=== PATIENT | male | born 1980 ===

== ENCOUNTER 2017-07-06 16:02 | Emergency (ER) | payer OTHER ==
[~2017-07-06] VITALS: Ht 170.2 cm; Wt 81.6 kg
--- NOTE | 2017-07-06 17:10 | NUR ---
MSE COMPLETED, PT D/C'D HOME, ACI/RX X2 GIVEN. PT AMBULATED W/O DIFF/TOOK ALL BELONGINGS.
[2017-07-06 17:12] VITALS: BP 166/92
== END 2017-07-06 17:13 | disposition home or self-care (01) ==
LOC: ER 16:02
DX: J18.9 Pneumonia, unspecified organism (principal)
CPT/HCPCS: 71045; A4663

== ENCOUNTER 2017-08-03 17:16 | Inpatient (IN) | payer OTHER ==
[~2017-08-03] VITALS: Ht 170.2 cm; Wt 82.2 kg
[2017-08-03] MEDS ORDERED: AMLO5TAB4 PO (17:34)
[2017-08-03 18:18] LABS: POTASSIUM 3.4 mmol/L (3.5-5.1)
[2017-08-03 18:23] LABS: BASOPHILS # (AUTO) 0.1 K/uL (0.0-8.0); BASOPHILS % (AUTO) 0.8 % (0.0-2.0); EOSINOPHILS # (AUTO) 0.3 K/uL (0.0-0.7); EOSINOPHILS % (AUTO) 2.1 % (0.0-7.0); HEMATOCRIT 48.3 % (36.7-47.1); HEMOGLOBIN 16.2 g/dL (12.5-16.3); LYMPHOCYTES # (AUTO) 1.4 K/uL (20.0-40.0); LYMPHOCYTES % (AUTO) 10.5 % (20.5-51.5); MEAN CORPUSCULAR HEMOGLOBIN 28.5 uug (23.8-33.4); MEAN CORPUSCULAR HGB CONC 34 g/dL (32.5-36.3); MEAN CORPUSCULAR VOLUME 84.8 fL (73.0-96.2); MONOCYTES # (AUTO) 0.9 K/uL (2.0-10.0); MONOCYTES % (AUTO) 6.5 % (0.0-11.0); NEUTROPHILS # (AUTO) 10.8 K/uL (1.8-8.9); NEUTROPHILS % (AUTO) 80.1 % (38.5-71.5); PLATELET COUNT (AUTO) 245 K/uL (152-348); WHITE BLOOD COUNT (AUTO) 13.5 K/uL (3.6-10.2)
[2017-08-03] MEDS ORDERED: IV NORMAL SALINE 1000 ML BAG IV ONE (18:30)
[2017-08-03 18:36] LABS: BILIRUBIN,DIRECT 0.1 mg/dL (0.0-0.2); BILIRUBIN,TOTAL 0.6 mg/dL (0.2-1.0); TOTAL PROTEIN, SERUM 8.6 g/dL (6.4-8.2)
--- NOTE | 2017-08-03 18:53 | NUR ---
SALINE LOCK PLACED, 1L 0.9 NS INFUSING, MONITOR SHOWS NSR, PO2=99% ON ROOMAIR. LABS/EKG DONE.
[2017-08-03] MEDS ORDERED: ALBUMIN HUMAN 25% (12.5 GM/50 ML ) BOTTLE IV ONE (21:37)
[2017-08-03] MEDS ORDERED: IV NS 1000 ML 1,000 ML IV ONE (22:15)
--- NOTE | 2017-08-03 22:15 | NUR ---
SBAR REPORT TO JESSICA REHMAN RN FROM REGISTRY.
--- NOTE | 2017-08-03 22:38 | NUR ---
Orthostatic VS: supine: 123 hr 157/100 Sittin hr 153/103 Standin hr 161/110 MD notified. Urine sample obtained and taken to lab.
[2017-08-03 23:06] LABS: *AMPHETAMINE, URINE NEGATIVE (NEGATIVE); *BARBITURATE, URINE NEGATIVE (NEGATIVE); *CANNABINOID, URINE NEGATIVE (NEGATIVE); *COCCAINE, URINE NEGATIVE (NEGATIVE); *OPIATE, URINE NEGATIVE (NEGATIVE); *PHENCYCLIDINE SCREEN,URINE NEGATIVE (NEGATIVE)
[2017-08-03] MEDS ORDERED: ALPRAZOLAM 0.25 MG TABLET PO ONE (23:15)
[2017-08-03] MEDS ORDERED: ALPRAZOLAM 0.5 MG TABLET ONE (23:16)
[2017-08-04] MEDS ORDERED: MORPHINE SULFATE 2 MG/1 ML DISP.SYRIN IV ONE (00:30)
[2017-08-04] MEDS ORDERED: ASPIRIN 81 MG TAB.CHEW PO ONE (00:30)
[2017-08-04] MEDS ORDERED: ASPIRIN 81 MG TAB.CHEW ONE (00:39)
[2017-08-04] MEDS ORDERED: METOPROLOL TARTRATE 50 MG TABLET ONE (00:39)
[2017-08-04] MEDS ORDERED: MORPHINE SULFATE 2 MG/1 ML DISP.SYRIN ONE (00:40)
[2017-08-04] MEDS ORDERED: METOPROLOL TARTRATE 50 MG TABLET PO ONE (00:45)
--- NOTE | 2017-08-04 00:53 | NUR ---
Pt c/o sharp pain, 11/23, in upper "lungs". Pt was medicated for pain. Pt going to CT.
[2017-08-04 01:46] LABS: *BILIRUBIN,URIN NEGATIVE (NEGATIVE); *BLOOD, URINE Trace-lysed (NEGATIVE); *CLARITY,URINE CLEAR (CLEAR); *COLOR,URINE YELLOW (YELLOW); *KETONES,URINE NEGATIVE (NEGATIVE); *PROTEIN,URINE NEGATIVE (NEGATIVE); *UROBILINOGEN,URINE 0.2 E.U./dl (NORMAL); LEUKOCYTE ESTERASE ,URINE NEGATIVE (NEGATIVE); NITRITE, URINE NEGATIVE (NEGATIVE); UGLUCOSE NEGATIVE (NEGATIVE)
[2017-08-04 01:49] LABS: BACTERIA,URINE NONE SEEN /HPF (NONE SEEN); RBC,URINE 0-3 /HPF (0-3); SQUAMOUS EPITHELIAL CELL,UR FEW /HPF (NONE SEEN); WBC,URINE NONE SEEN /HPF (0-3)
[2017-08-04] MEDS ORDERED: IV NS 1000 ML 1,000 ML IV PRN (03:17)
[2017-08-04] MEDS ORDERED: ONDANSETRON 4 MG/2 ML VIAL IV PRN (03:30)
[2017-08-04] MEDS ORDERED: MAGNESIUM HYDROXIDE 30 ML LIQUID UDC PO PRN (03:30)
[2017-08-04] MEDS ORDERED: ACETAMINOPHEN 325 MG TABLET PO PRN (03:30)
[2017-08-04] MEDS ORDERED: HYDROCODONE/APAP 5-325MG TABLET PO PRN (03:30)
[2017-08-04] MEDS ORDERED: MORPHINE SULFATE 2 MG/1 ML DISP.SYRIN IV PRN (03:30)
--- NOTE | 2017-08-04 03:35 | NUR ---
Called to give report, nurse busy, B
--- NOTE | 2017-08-04 03:48 | NUR ---
Gave report to PEDRITO Dillard.
--- NOTE | 2017-08-04 04:00 | NUR ---
PT ALERT AWAKE AND ORIENTED IN NO ACUTE DISTRESS ARRIVING IN TELEMETRY UNIT. STATES MINOR CHEST PAIN 07/24. PT MADE AWARE OF PLAN OF CARE AND VERBALIZED UNDERSTANDING. ABLE TO MAKE NEEDS KNOWN. SKIN INTACT WITH ALL EXTREMITIES WNL. BP 114/91 HR SINUS RHYTHM 80BPM. CONTINUE TO MONITOR. CALL LIGHT PLACED WITHIN REACH.
[2017-08-04 04:22] VITALS: BP 107/62
[2017-08-04 06:26] LABS: PHOSPHOROUS 4.3 mg/dL (2.5-4.9)
[2017-08-04] MEDS ORDERED: PANTOPRAZOLE SODIUM 40 MG TABLET.DR PO SCH (07:00)
--- NOTE | 2017-08-04 08:08 | NUR ---
PATIENT RESTING COMFORTABLY IN BED AT THIS TIME, NEW ADMISSION FROM [facility]. STABLE CONDITION, NO S/S OF DISTRESS, VITAL SIGNS STABLE. PATIENT COMPLAINS OF PRESSURE CHEST PAIN 4/10 ON PAIN SCALE AND VERBALIZES THAT CHEST PAIN DOES NOT RADIATE ELSEWHERE. WILL CONTINUE TO MONITOR. CALL LIGHT WITHIN REACH.
[2017-08-04] MEDS ORDERED: ASPIRIN 81 MG TAB.CHEW PO SCH (09:00)
[2017-08-04 11:54] VITALS: BP 110/69
--- NOTE | 2017-08-04 12:12 | NUR ---
PATIENT VERY IMPATIENT, WANTING TO BE DISCHARGED, MD VISITED PATIENT AND VERBALIZED THAT HE WILL DISCHARGE PT TODAY.
--- NOTE | 2017-08-04 12:40 | NUR ---
MD ORDERED MORPHINE 4 MG IV, ZOFRAN 4 MG, AND INCENTIVE SPIROMETRY PER RT.
[2017-08-04 15:00] VITALS: BP 103/67
--- NOTE | 2017-08-04 15:00 | NUR ---
PATIENT NO LONGER COMPLAINS OF CHEST PAIN. PATIENT EDUCATION PROVIDED ABOUT INCENTIVE SPIROMETER AND PATIENT TEACH-BACK NOTED. VITAL SIGNS STABLE. NO S/S OF DISTRESS.
--- NOTE | 2017-08-04 15:48 | NUR ---
PATIENT DISCHARGED BACK HOME AT THIS TIME IN STABLE CONDITION, NO S/S OF DISTRESS, VITAL SIGNS STABLE. PATIENT NO LONGER COMPLAINS OF CHEST PAIN. SINUS RHYTHM ON RESEARCH SOIL SCIENTIST BEFORE MONITOR WAS D/Doc BEFORE DISCHARGE. IV-LINE DISCONNECTED, ID-BAND TAKEN OFF, TELEMETRY BOX DISCONNECTED AND RETURNED TO VISCOSE CELLAR WORKER. DISCHARGE DOCUMENTATION/PRESCRIPTIONS COMPLETED BY MD, DISCHARGE INSTRUCTIONS/EDUCATION PROVIDED TO PATIENT. DISCHARGE PACKET COMPLETED, SIGNED BY PATIENT AND GIVEN A COPY. BELONGINGS CHECK AND CHECKLIST FORM SIGNED. PROVIDED PATIENT'S PRESCRIPTIONS PER MD ORDERS. PATIENT LEFT HOSPITAL PREMISES ACCOMPANIED BY [facility] IN SAFE CONDITION.
== END 2017-08-04 15:48 | disposition home or self-care (01) | DRG 206 ==
LOC: ER 17:17 → TELE 08-04 03:00
PROVIDERS: ADMIT Nurse Practitioner Acute Care; ATTEND Hospitalist
DX: M94.0 Chondrocostal junction syndrome [Tietze] (principal); K76.0 Fatty (change of) liver, not elsewhere classified; D72.829 Elevated white blood cell count, unspecified; J98.11 Atelectasis; E87.6 Hypokalemia; J45.909 Unspecified asthma, uncomplicated; Z87.01 Personal history of pneumonia (recurrent); Z82.49 Family history of ischemic heart disease and other diseases of the circulatory system; F41.9 Anxiety disorder, unspecified; I10 Essential (primary) hypertension; Z79.899 Other long term (current) drug therapy
CPT/HCPCS: 36415; 70030-TC; 71045; 71275; 80307; 83735; 84100; 85025; 85730; 93005; A4663; J2270; J2405; J7030